=== PATIENT | female | born 2000 | race Caucasian/White ===

== ENCOUNTER 2020-08-25 03:47 | Inpatient (IN) | payer BC, OTHER ==
[2020-08-25] MEDS ORDERED: OXYTOCIN/LR 20 UNIT/1,000 ML BAG IV SCH ×2 (04:00→12:00)
[2020-08-25] MEDS ORDERED: Ringers Lactate 1,000 ML IV PRN (04:00)
[2020-08-25] MEDS ORDERED: Ringers Lactate 1,000 ML IV SCH (04:00)
[2020-08-25] MEDS ORDERED: PROMETHAZINE INJ 25 MG/ML AMP IM PRN ×2 (04:11→13:38)
[2020-08-25] MEDS ORDERED: METHYLERGONOVINE 0.2MG/ML AMP IM PRN (04:11)
[2020-08-25] MEDS ORDERED: CARBOPROST TROME 250 MCG/ML IM PRN (04:11)
[2020-08-25] MEDS ORDERED: BUTORPHANOL 1 MG/ML INJ IV PRN (04:11)
[2020-08-25 05:05] LABS: Absolute Lymphocytes (CBC) 2.2 K/uL (0.7-4.9); Basophils % 0.6 % (0-1.3); Lymphocytes % 22.6 % (15.3-44.8); MPV 10.3 fL (7.6-11.3); RBC Red Blood Cell Count 3.91 M/uL (3.86-4.86); Urine Appearance TURBID; Urine Bilirubin NEGATIVE (NEG); Urine Blood NEGATIVE (NEG); Urine Color YELLOW; Urine Glucose NEGATIVE (NEG); Urine Protein 1+ (NEG); Urine Specific Gravity 1.015 (1.005-1.030); Urine Urobilinogen 0.2 mg/dL (0.2-1.0)
[2020-08-25 05:13] VITALS: BMI 32.1
[2020-08-25 05:16] LABS: Urine Microscopic Reflex ORDER UMIC
[2020-08-25 05:55] LABS: Urine Bacteria 20-50 /HPF (<20); Urine RBC <5 /HPF (NONE SEEN)
--- NOTE | 2020-08-25 07:35 | PREOPHP ---
Date of Admission: 08/25/2020 History Of Present Illness: Nicole Johnson is a 20-year-old primigravida, gestational diabetic, fo llowed antepartum without major complications. Rh positive. Immune to rubella. Negative strep. Ne gative for COVID. 3.5 cm, 50% effaced, vertex, -1 station. FHTs normal, reactive. Blood pressures are slightly elevated. She had +1 clean-catch urine specimen protein, we will check it as catheteriz ed specimen. She has no edema. Normal reflexes. No ENVIRONMENTAL REMEDIATION SPECIALIST symptoms, but we will monitor closely durin g the labor for signs of preeclampsia. Patient is a 38 weeks and 3-4 days. Being induced secondary to diabetes. Family History: She has history of 1 grandparent having hypertension, another having a heart attack. Grandparents with diabetes as well. No cancers in the family. No other type of problems. Allergies: NO ALLERGIES. Medications: No medicines prior to admission other than vitamins. Physical Examination: HEENT: Clear. Pupils equal, round, and reactive to light and accommodation. Conjunctivae well perf used. No oral, lingual, or buccal lesions. Chest: Lungs are clear. Heart: Without murmurs, thrills, heaves, or rubs. Breasts: Not examined, but normal on previous visits. Abdomen: Term. Baby is vertex. Pelvic exam as stated. Extremities: Clear without edema, cyanosis, or clubbing. Assessment/plan: We will anticipate delivery sometime later today. Full labor talk given. Patient will probably be requesting epidural. DEO/NANCY Voice ID: [id number]
[2020-08-25] MEDS ORDERED: FENTANYL/BUPIVACAINE/NS/PF 200 MCG/100 ML BAG EP PRN (08:40)
[2020-08-25] MEDS ORDERED: FENTANYL CITR 100 MCG/2 ML IV ONE (08:40)
[2020-08-25] MEDS ORDERED: BUPIVACAINE 0.25% PF 10 ML VIAL IV PRN (08:41)
[2020-08-25 09:28] LABS: Urine Appearance CLOUDY; Urine Bilirubin NEGATIVE (NEG); Urine Blood 3+ (NEG); Urine Color YELLOW; Urine Glucose NEGATIVE (NEG); Urine Protein 1+ (NEG); Urine Specific Gravity 1.015 (1.005-1.030); Urine Urobilinogen 0.2 mg/dL (0.2-1.0); Urine pH 7.5 (5.0-7.0)
[2020-08-25 09:35] LABS: Urine Bacteria <20 /HPF (<20); Urine Mucus LIGHT /HPF (NONE SEEN); Urine RBC >50 /HPF (NONE SEEN); Urine Urothelial Cells >20 /HPF (NONE SEEN)
[2020-08-25] MEDS ORDERED: LIDOCAINE 1% MPF 30 ML VIAL ONE (10:25)
[2020-08-25] MEDS ORDERED: IBUPROFEN 600 MG TAB PO PRN (11:23)
[2020-08-25] MEDS ORDERED: DOCUSATE NA/SENNA CONC 1 TAB PO PRN (11:23)
[2020-08-25] MEDS ORDERED: ACETAMINOPHEN 500 MG TAB PO PRN (11:23)
[2020-08-25] MEDS ORDERED: EPHEDRINE SULF 50 MG/ML VIAL ONE (11:23)
[2020-08-25] MEDS ORDERED: BISACODYL 10 MG RECTAL SUPP RC PRN (11:23)
[2020-08-25] MEDS ORDERED: Oxycodone HCl/Acetaminophen 1 TAB TAB PO PRN ×2 (11:23)
[2020-08-25] MEDS ORDERED: DIPHENHYDRAMINE 25 MG TAB/CAP PO PRN (11:23)
[2020-08-25] MEDS ORDERED: CEFAZOLIN/SWI 2gm 2 GM/20 ML SYR ONE (11:39)
--- NOTE | 2020-08-25 12:13 | OP ---
Surgeon: Joseph Hopkins MD Nicole Johnson is a 20-year-old primigravida 38 weeks 3 days, gestational diabetic. Rh positive, i mmune to rubella. Negative beta strep screen. Negative COVID. Rupture membranes this morning at 3. 5 cm, clear fluid. The patient went to an active labor pattern. Requested and received epidural ane sthesia which made the patient extremely numb. The epidural was turned back on the maintenance dose and eventually was stopped. Very difficult to get FHTs, Doptone was used and pulse was thought to be in the 70s. Scalp electrode was placed because the machine was not functioning. It was decided pro ceed with vacuum extraction. A 7 pounds 6 ounces female was delivered. Nuchal cord x1 loosely. Apg ars 9 and 9. Second-degree episiotomy with fourth-degree extension. A 3-0 chromic followed by inter rupted sutures to approximate the sphincter muscles with 2-0 chromic and then a running lock sutures to close the rest of the laceration episiotomy. Bleeding significantly from the laceration. The pat ient was noted to have hypotension, given 12.5 mg of ephedrine IV drip. Fluids has now looking chris r, still somewhat pale. We got a hematocrit pending. She had a hematocrit of approximately 34 on ad mission. The placenta was delivered without any difficulty. Uterus contracted down well. 2 g of An cef been for prophylaxis. Thorough discussion with patient about significance of her fourth-degree a nd importance of proper care. We will put her on stool softeners. We will keep the IV go ing until later today, until we make sure the patient is stable. Final Diagnoses: At this point, intrauterine gestation, 38 weeks 3 days, gestational diabetes, labor induction, vaginal delivery, epidural anesthesia, vacuum extraction, fourth-degree laceration extension. NBC/MODL Voice ID: [id number] Report ID: [id number]
--- NOTE | 2020-08-25 12:50 | PN ---
The patient is looking better, still pale. Her pulse is 80 now, blood pressure is 110/70. Lochia is normal. Hematocrit was 27.3 from 34 on admission. I think it will drop lower. We will stand her u p this afternoon once her legs and motor function returns. If she gets dizzy, then we will probably give her a unit of blood. Full discussion with the patient and her mother. She knows about the four th-degree laceration. Again, we told her Colace, no intercourse, lots of vitamin C, and we will go o alex that again later this afternoon. Right now, the patient looks quite stable, but we will monitor closely. DEO/NANCY Voice ID: [id number] Report ID: [id number]
--- NOTE | 2020-08-25 18:10 | PN ---
The patient seems much better now. Conjunctivae were better perfused. She is a pale person to begin with. Her pulse has been in the 80s. Lochia is normal. We went over again the bleeding from the l aceration. We went over again care of the laceration and the importance of taking stool softeners an d not having sex during the next [address] Starkey who is taking over tomorrow morning. We will do test this evening where once her legs are functional, let her stand and see where her bloo d pressures do. I will order a fingerstick hematocrit for 6 a.m[address] so Dr. Starkey can evaluate her more completely at that time and I will contact him tonight to give him a heads up. Right now though she seems to be quite stable. DEO/NANCY Voice ID: [id number] Report ID: [id number]
--- NOTE | 2020-08-25 18:14 | PN ---
I [facility] be taking over to [facility] tomorrow morning. I to ld him the delivery, the fourth degree, significant bleeding from that. Her pulse is in the 80 range . Her blood pressure is good. Her lochia is normal. She is alert. Her conjunctivae look better. We will do a bedside test to see if she gets dizzy when she stands once her legs are fully functional . If there are any problems, we will get a hematocrit tonight. Her hematocrit went from 34 to 27, b ut right now she is looking quite well. If she needs any blood, we will give her some tonight. Otarchana awad, I have ordered hematocrit for [address] Starkey when he takes over, can decide what to do in t he morning. I went over everything with him extensively. DEO/NANCY Voice ID: [id number] Report ID: [id number]
[2020-08-25] MEDS ORDERED: Ringers Lactate 4,000 ML IV ONE (18:50)
[2020-08-25] MEDS ORDERED: Ringers Lactate 1,000 ML IV ONE (18:52)
[2020-08-25] MEDS ORDERED: NA CHLORIDE 0.9% 500 ML ONE (20:55)
[2020-08-25 22:44] LABS: RPR (Rapid Plasma Reagin) NON-REACT (NON-REACT)
[2020-08-26] MEDS ORDERED: NA CHLORIDE 0.9% 500 ML ONE (01:48)
[2020-08-26 11:38] VITALS: BP 121/78; TEMP 98.2
--- NOTE | 2020-08-26 13:12 | PN ---
Date of Progress Note: 08/26/2020 Subjective: This is a 20-year-old white female, now G1, P1, status post spontaneous vaginal delivery yesterday, 08/25/2020 at 0700 hours. The patient had care and had diet-controlled gestatio nal diabetes. No other complications during her . The patient did have augmented labor aft er artificial rupture of membranes and epidural anesthesia. The patient was delivered by Dr. Kellie patel morning at 0700 hours and had a 4th degree laceration of a midline episiotomy which was repa ired. The patient's blood loss secondary to the laceration was quantitatively 1088 cc. At that time , the patient remained asymptomatic, although she did have a bout of hypotension, required some IV ep hedrine. The patient's course; the patient had a significant drop in her hematocrit to 24 and becam e symptomatic with dizziness. The patient received 2 units of packed red cells yesterday because of continued symptomatic anemia. Since her delivery, her lochia has been minimal and she has had no act racheal bleeding. Today, the patient has been ambulatory and she denies any significant hypotension, diz ziness. Impression: 1. day 1, spontaneous vaginal delivery. 2.Fourth degree laceration of episiotomy. 3. hemorrhage secondary to laceration with symptomatic anemia and acute blood loss requiri ng transfusion of 2 units packed red cells. Now, the patient is asymptomatic. Plan: The patient is ready for discharge today. She is bottle feeding. She is immune to rubella. She will be continuing her vitamins daily as well as her daily iron supplementation. She wi ll followup in the office in 6 weeks or call for any problems prior to that visit. The patient was g samson prescription for Colace 100 mg b.i.d. for the next 2 weeks and this was sent to her pharmacy janet ctron[facility]. The patient does not require pain medication, but may use warm soaks as need ed. control was discussed and pelvic rest. The patient is planning on control pill and will start this after her 6-week visit. Again, she has been advised the importance of pelvic rest se condary to her 4th degree laceration and this needs to have ample time to heal. The patient understo od these instructions. Had no questions at the time of discharge. CECIL/NANCY Voice ID: [id number] Report ID: [id number]
[2020-08-28 20:25] LABS: HBsAG Nonreactive (Nonreactive)
== END 2020-08-26 12:30 | disposition home or self-care (01) | DRG 768 ==
LOC: 2ND-WC 04:06
PROVIDERS: ADMIT Specialist; ATTEND Specialist
PROC: 10D07Z6 Extraction of Products of Conception, Vacuum, Via Natural or Artificial Opening (ICD-10-PCS; principal; 2020-08-25)
PROC: 10907ZC Drainage of Amniotic Fluid, Therapeutic from Products of Conception, Via Natural or Artificial Opening (ICD-10-PCS; 2020-08-25)
PROC: 4A1H7CZ Monitoring of Products of Conception, Cardiac Rate, Via Natural or Artificial Opening (ICD-10-PCS; 2020-08-25)
PROC: 10H073Z Insertion of Monitoring Electrode into Products of Conception, Via Natural or Artificial Opening (ICD-10-PCS; 2020-08-25)
PROC: 0DQP0ZZ Repair Rectum, Open Approach (ICD-10-PCS; 2020-08-25)
PROC: 30233N1 Transfusion of Nonautologous Red Blood Cells into Peripheral Vein, Percutaneous Approach (ICD-10-PCS; 2020-08-25)
DX: O24.429 Gestational diabetes mellitus in childbirth, unspecified control (principal); Z37.0 Single live birth; D62 Acute posthemorrhagic anemia; O70.3 Fourth degree perineal laceration during delivery; O26.53 Maternal hypotension syndrome, third trimester; O90.81 Anemia of the puerperium; Z3A.38 38 weeks gestation of pregnancy; Z20.828 Contact with and (suspected) exposure to other viral communicable diseases
CPT/HCPCS: 36415; 36430; 81001; 81003; 81015; 82947; 85014; 85025; 86592; 86850; 86900; 86901; 87086; 87088; 87340; J0690; J2210; J2550; J3010; J7040; J7120; P9016; U0003

== ENCOUNTER 2021-06-14 10:19 | Emergency (ER) | payer BC, OTHER, SELFPAY ==
[2021-06-14 11:00] LABS: Absolute Lymphocytes (CBC) 1.4 K/uL (0.7-4.9); Basophils % 0.5 % (0-1.3); Hematocrit 35.9 % (36.0-45.0); Lymphocytes % 10.9 % (15.3-44.8); MPV 8.8 fL (7.6-11.3)
[2021-06-14 11:19] LABS: Bicarbonate 25 mmol/L (21-32); Glucose Level 143 mg/dL (74-106); Potassium 3.5 mmol/L (3.5-5.1); Sodium Level 138 mmol/L (136-145)
[2021-06-14 11:20] LABS: ALT/SGPT 17 U/L (12-78); AST/SGOT 9 U/L (15-37); Albumin 3.6 g/dL (3.4-5.0); Alkaline Phosphatase 82 U/L (45-117); BUN Blood Urea Nitrogen 6 mg/dL (7-18); Bilirubin Direct < 0.1 mg/dL (0-0.2); Bilirubin Total 0.4 mg/dL (0.2-1.0); Lipase 136 U/L (73-393); Protein, Total 7.7 g/dL (6.4-8.2)
[2021-06-14 11:27] LABS: Urine Blood 2+ (Negative); Urine Glucose Negative (Negative); Urine Protein 3+ (Negative); Urine Specific Gravity >=1.030 (1.005-1.030); Urine pH 5.5 (5.0-7.0)
[2021-06-14 11:57] LABS: Urine Specific Gravity/Preg >1.030 (1.005-1.030)
[2021-06-14] MEDS ORDERED: ONDANSETRON 4 MG/2 ML VIAL ONE (12:15)
--- NOTE | 2021-06-14 12:21 | RAD REPORT ---
EXAM DESCRIPTION: CTAbdomen Pelvis W Contrast - 06/14/2021 12:12 pm CLINICAL HISTORY: Abdominal pain. ABD PAIN COMPARISON: No comparisons TECHNIQUE: Biphasic CT imaging of the abdomen and pelvis was performed with 100 ml non-ionic IV cont rast. All CT scans are performed using dose optimization technique as appropriate and may include automated exposure control or mA/KV adjustment according to patient size. FINDINGS: The lung bases are clear. The liver, spleen, pancreas, adrenal glands and kidneys are within normal limits. No bowel obstruction, free air, free fluid or abscess. Moderate fat containing ventral hernia. The ap pendix is normal. No evidence of significant lymphadenopathy. No suspicious bony findings. IMPRESSION: No acute intra-abdominal or pelvic finding. Moderate fat containing ventral hernia.
[2021-06-14] MEDS ORDERED: MORPHINE 2 MG/ML SYR ONE (13:02)
--- NOTE | 2021-06-14 15:18 | ER ---
Nurse's Notes [facility] Name: Nicole Johnson Age: 21 yrs Sex: Female : 2000 Arrival Date: 06/14/2021 Time: 10:20 Bed 6 Private MD: Diagnosis: Vomiting;Diarrhea, unspecified;Abdominal tenderness;Coronavirus infection, unspecified Presentation: 06/14 10:35 Chief complaint: Patient states: generalized abd pain with nausea/vomiting/diarrhea aa5 that began yesterday. Coronavirus screen: diarrhea, nausea, vomiting. Ebola Screen: Patient negative for fever greater than or equal to 101.5 degrees Fahrenheit, and additional compatible Ebola Virus Disease symptoms. Initial Sepsis Screen: Does the patient meet any 2 criteria? No. Patient's initial sepsis screen is negative. Does the patient have a suspected source of infection? No. Patient's initial sepsis screen is negative. Risk Assessment: Do you want to hurt yourself or someone else? Patient reports no desire to harm self or others. Onset of symptoms was June 2021. 10:35 Method Of Arrival: Ambulatory aa5 10:35 Acuity: YESSY 3 aa5 Historical: - Allergies: 10:36 No Known Allergies; aa5 - PMHx: 10:36 Gestational Diabetes; aa5 - PSHx: 10:36 None; aa5 - Immunization history:: Client reports having NOT received the Covid vaccine. - Social history:: Smoking status: Patient denies any tobacco usage or history of. Screenin:59 Abuse screen: Denies threats or abuse. Denies injuries from another. Nutritional ch5 screening: No deficits noted. Tuberculosis screening: No symptoms or risk factors identified. Fall Risk None identified. Assessment: 12:02 Reassessment: Patient appears in no apparent distress at this time. c/o abd pain. pt to ch5 CT by wheelchair. GI: Bowel sounds present X 4 quads. Vital Signs: 10:37 BP 145 / 88; Pulse 95; Resp 18 S; Temp 97.5(TE); Pulse Ox 96% on R/A; Weight 74.84 kg aa5 (R); Height 5 ft. 4 in. (162.56 cm) (R); 11:59 BP 138 / 79; Pulse 90; Resp 18; Pulse Ox 97% on R/A; Pain 8/10; ch5 13:27 BP 132 / 89; Pulse 88; Resp 18; Pulse Ox 98% ; Pain 3/10; ch5 10:37 Body Mass Index 28.32 (74.84 kg, 162.56 cm) aa5 ED Course: 10:20 Patient arrived in ED. as 10:35 Arm band placed on. aa5 10:36 Triage completed. aa5 10:46 Initial lab(s) drawn, by me, sent to lab. COVID swab sent to lab. Inserted saline lock: aa5 20 gauge in right antecubital area, using aseptic technique. Blood collected. 10:47 Patient placed in waiting room, Patient notified of wait time. aa5 11:37 Jason Whatley MD is Attending Physician. lexii 11:49 Daron Prajapati, RN is Primary Nurse. 5 11:59 Bed in low position. Call light in reach. Side rails up X2. ch5 11:59 No provider procedures requiring assistance completed. ch5 12:12 CT Abd/Pelvis - IV Contrast Only In Process Unspecified. EDMS Administered Medications: 11:53 Drug: NS 0.9% 1000 ml Route: IV; Rate: 1 bolus; Site: right antecubital; ch5 11:53 Drug: Zofran (Ondansetron) 4 mg Route: IVP; Site: right antecubital; ch5 14:21 Follow up: Response: Nausea is decreased 5 12:44 Drug: morphine 2 mg Route: IVP; Site: right antecubital; ch5 14:19 Follow up: Response: Pain is decreased 5 13:27 Not Given (Patient Refused): Zofran (Ondansetron) 4 mg IVP once; over 2 minutes 5 Outcome: 15:17 Discharge ordered by . lexii 15:58 Discharged to home ambulatory. [facility] 15:58 Condition: improved 15:58 Discharge instructions given to patient, Prescriptions given X 2. 15:59 Patient left the ED. 5 Signatures: Dispatcher [employer] EDMS Jason Whatley MD MD cha Martinez, Amelia as Calderon, Audri, RN RN 5 Daron Prajapati, RN RN 5
--- NOTE | 2021-06-14 15:18 | EDPHYS ---
[facility] Name: Nicole Johnson Age: 21 yrs Sex: Female : 2000 Arrival Date: 06/14/2021 Time: 10:20 Bed 6 Private MD: RANDALL Physician Jason Whatley HPI: 06/14 15:13 This 21 yrs old Female presents to ER via Ambulatory with complaints of lexii Abdominal Pain, Vomiting. Historical: - Allergies: 10:36 No Known Allergies; aa5 - PMHx: 10:36 Gestational Diabetes; aa5 - PSHx: 10:36 None; aa5 - Immunization history:: Client reports having NOT received the Covid vaccine. - Social history:: Smoking status: Patient denies any tobacco usage or history of. ROS: 15:14 Constitutional: Negative for fever, chills, and weight loss, Eyes: Negative for injury, lexii pain, redness, and discharge, ENT: Negative for injury, pain, and discharge, Neck: Negative for injury, pain, and swelling, Cardiovascular: Negative for chest pain, palpitations, and edema, Respiratory: Negative for shortness of breath, cough, wheezing, and pleuritic chest pain, Back: Negative for injury and pain, : Negative for injury, bleeding, discharge, and swelling, MS/Extremity: Negative for injury and deformity, Skin: Negative for injury, rash, and discoloration, Neuro: Negative for headache, weakness, numbness, tingling, and seizure, Psych: Negative for depression, anxiety, suicide ideation, homicidal ideation, and hallucinations, Allergy/Immunology: Negative for hives, rash, and allergies, Endocrine: Negative for neck swelling, polydipsia, polyuria, polyphagia, and marked weight changes, Hematologic/Lymphatic: Negative for swollen nodes, abnormal bleeding, and unusual bruising. 15:14 Abdomen/GI: Positive for abdominal pain, nausea and vomiting, diarrhea, of the right upper quadrant, left upper quadrant, right lower quadrant and left lower quadrant. Exam: 15:14 Constitutional: This is a well developed, well nourished patient who is awake, alert, lexii and in no acute distress. Head/Face: Normocephalic, atraumatic. Eyes: Pupils equal round and reactive to light, extra-ocular motions intact. Lids and lashes normal. Conjunctiva and sclera are non-icteric and not injected. Cornea within normal limits. Periorbital areas with no swelling, redness, or edema. ENT: Nares patent. No nasal discharge, no septal abnormalities noted. Tympanic membranes are normal and external auditory canals are clear. Oropharynx with no redness, swelling, or masses, exudates, or evidence of obstruction, uvula midline. Mucous membranes moist. Neck: Trachea midline, no thyromegaly or masses palpated, and no cervical lymphadenopathy. Supple, full range of motion without nuchal rigidity, or vertebral point tenderness. No Meningismus. Chest/axilla: Normal chest wall appearance and motion. Nontender with no deformity. No lesions are appreciated. Cardiovascular: Regular rate and rhythm with a normal S1 and S2. No gallops, murmurs, or rubs. Normal PMI, no JVD. No pulse deficits. Respiratory: Lungs have equal breath sounds bilaterally, clear to auscultation and percussion. No rales, rhonchi or wheezes noted. No increased work of breathing, no retractions or nasal flaring. Back: No spinal tenderness. No costovertebral tenderness. Full range of motion. Skin: Warm, dry with normal turgor. Normal color with no rashes, no lesions, and no evidence of cellulitis. MS/ Extremity: Pulses equal, no cyanosis. Neurovascular intact. Full, normal range of motion. Neuro: Awake and alert, GCS 15, oriented to person, place, time, and situation. Cranial nerves II-XII grossly intact. Motor strength 5/5 in all extremities. Sensory grossly intact. Cerebellar exam normal. Normal gait. Psych: Awake, alert, with orientation to person, place and time. Behavior, mood, and affect are within normal limits. 15:14 Abdomen/GI: Inspection: abdomen appears normal, Bowel sounds: active, Palpation: mild abdominal tenderness, in all quadrants. 15:14 Musculoskeletal/extremity: DVT Exam: No signs of deep vein thrombosis. no pain, no swelling, no tenderness, negative Homans' sign noted on exam, no appreciated bluish discoloration, no erythema, no increased warmth. Vital Signs: 10:37 BP 145 / 88; Pulse 95; Resp 18 S; Temp 97.5(TE); Pulse Ox 96% on R/A; Weight 74.84 kg aa5 (R); Height 5 ft. 4 in. (162.56 cm) (R); 11:59 BP 138 / 79; Pulse 90; Resp 18; Pulse Ox 97% on R/A; Pain 8/10; ch5 13:27 BP 132 / 89; Pulse 88; Resp 18; Pulse Ox 98% ; Pain 3/10; ch5 10:37 Body Mass Index 28.32 (74.84 kg, 162.56 cm) aa5 MDM: 11:38 Patient medically screened. [facility] 15:15 Differential diagnosis: Nonspecific abd pain, pancreatitis, diverticulitis, viral elxii gastroenteritis, gastroenteritis. Data reviewed: vital signs, nurses notes, lab test result(s), radiologic studies, CT scan. 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 Counseling: I had a detailed discussion with the patient and/or guardian regarding: the historical points, exam findings, and any diagnostic results supporting the discharge/admit diagnosis, lab results, radiology results, the need for outpatient follow up, for definitive care, a family practitioner. 06/14 10:37 Order name: Basic Metabolic Panel; Complete Time: 11:39 aa 06/14 10:37 Order name: CBC with Diff; Complete Time: 11:39 aa 06/14 10:37 Order name: Hepatic Function; Complete Time: 11:39 aa 06/14 10:37 Order name: Lipase; Complete Time: 11:39 aa 06/14 11:26 Order name: Urine Dipstick-Ancillary; Complete Time: 11:39 EDMN 06/14 10:37 Order name: IV Saline Lock; Complete Time: 10:46 aa 06/14 11:28 Order name: Urine --Ancillary (enter results); Complete Time: 12:36 bd 06/14 11:42 Order name: CT Abd/Pelvis - IV Contrast Only; Complete Time: 12:36 lexii 06/14 12:45 Order name: SARS-COV-2 RT PCR; Complete Time: 15:09 EDMN 06/14 10:37 Order name: Labs collected and sent; Complete Time: 10:46 aa 06/14 10:46 Order name: Urine Dipstick-Ancillary (obtain specimen); Complete Time: 11:49 aa 06/14 10:46 Order name: Urine Test (obtain specimen); Complete Time: 11:49 aa5 Administered Medications: 11:53 Drug: NS 0.9% 1000 ml Route: IV; Rate: 1 bolus; Site: right antecubital; ch5 11:53 Drug: Zofran (Ondansetron) 4 mg Route: IVP; Site: right antecubital; ch5 14:21 Follow up: Response: Nausea is decreased ch5 12:44 Drug: morphine 2 mg Route: IVP; Site: right antecubital; ch5 14:19 Follow up: Response: Pain is decreased ch5 13:27 Not Given (Patient Refused): Zofran (Ondansetron) 4 mg IVP once; over 2 minutes ch5 Disposition Summary: 06/14/21 15:17 Discharge Ordered Location: Home [facility] Problem: new [facility] Symptoms: have improved [facility] Condition: Stable [facility] Diagnosis - Vomiting lexii - Diarrhea, unspecified lexii - Abdominal tenderness lexii - Coronavirus infection, unspecified lexii Followup: [facility] - With: Private Physician - When: 2 - 3 days - Reason: Recheck today's complaints, Continuance of care, Re-evaluation by your physician Discharge Instructions: - Discharge Summary Sheet [facility] - Diarrhea, Adult lexii - Nausea and Vomiting, Adult lexii - Diarrhea, Adult, [id number] [facility] - Vomiting, Adult [facility] - COVID-19 [facility] - COVID-19 Frequently Asked Questions [facility] - Things You Can Do to Manage Your COVID-19 Symptoms at Home - [facility] - COVID-19: Quarantine vs. Isolation - [facility] Forms: - Medication Reconciliation Form [facility] - Thank You Letter [facility] - Antibiotic Education [facility] - Prescription Opioid Use [facility] Prescriptions: - Pepcid 20 mg Oral Tablet - take 1 tablet by ORAL route every 12 hours for 15 days; 30 tablet; Refills: 0, [facility] Product Selection Permitted - Zofran 4 mg Oral Tablet - take 1 tablet by ORAL route every 12 hours As needed; 20 tablet; Refills: 0, [facility] Product Selection Permitted Signatures: Dispatcher [employer] Jason Hurst MD MD cha Calderon, Audri, RN RN aa5 Daron Prajapati RN RN ch5 Corrections: (The following items were deleted from the chart) 10:55 10:38 CORONAVIRUS+MR.LAB.BRZ ordered. EDMN EDMS
[2021-06-14 16:18] VITALS: TEMP 97.5
[2021-06-14 16:21] VITALS: BP 132/89; O2SAT 98
== END 2021-06-14 15:59 | disposition home or self-care (01) ==
LOC: ER 10:19
DX: U07.1 COVID-19 (principal); R19.7 Diarrhea, unspecified; R10.819 Abdominal tenderness, unspecified site
CPT/HCPCS: 36415; 74177; 80048; 80076; 81003; 81025; 83690; 85025; 96374; 96375; 99284; J2270; J2405; Q9967; U0003